=== PATIENT | female | born 1950 | race Asian ===

== ENCOUNTER 2020-05-19 16:03 | Emergency (ER) | payer MEDICARE, MEDICAID ==
[~2020-05-19] VITALS: Ht 149.9 cm; Wt 70.5 kg
[~2020-05-19 16:03] MED LIST: CLON0.3T PO; FERR-72 PO; FURO40TA5 PO; GLIP10TA9 PO; LABE100T5 PO; MINO2.5 PO; PRED1 PO; SLOMG PO; nephrovite PO
[2020-05-19] MEDS ORDERED: ONDANSETRON HCL 4 MG/2 ML VIAL IVP ONE (16:30)
[2020-05-19 16:54] LABS: COVID AG,FIA SOURCE NASOPHARYNGEAL
[2020-05-19] MEDS ORDERED: MECLIZINE HCL 25 MG TABLET PO ONE (17:30)
[2020-05-19 17:44] LABS: BASOPHILS % (AUTO) 0.5 % (0.0-2.0); EOSINOPHILS % (AUTO) 4.9 % (1.0-6.0); HEMATOCRIT 30.1 % (36-46); LYMPHOCYTES # (AUTO) 0.9 K/uL (1.0-4.8); LYMPHOCYTES % (AUTO) 9.5 % (22.0-44.0); MEAN CORPUSCULAR HEMOGLOBIN 31.5 pg (26.0-34.0); MEAN CORPUSCULAR HGB CONC 33.3 G/dL (31.0-37.0); MEAN CORPUSCULAR VOLUME 95 fL (80-100); MONOCYTES # (AUTO) 0.6 K/uL (0.1-1.0); MONOCYTES % (AUTO) 5.9 % (2.0-9.0); NEUTROPHILS # (AUTO) 7.5 K/uL (1.8-7.7); NEUTROPHILS % (AUTO) 79.2 % (40.0-70.0); PLATELET COUNT (AUTO) 156 K/uL (150-450); RED BLOOD CELL COUNT(AUTO) 3.18 MIL/uL (4.00-5.20); RED CELL DISTRIBUTION WIDTH 15.5 % (11.5-14.5)
[2020-05-19 18:01] LABS: CALCIUM, TOTAL 9.4 mg/dL (8.8-10.5); CREATININE 8.07 mg/dL (0.60-1.30); POTASSIUM 4.5 mmol/L (3.5-5.1)
[2020-05-19 18:10] LABS: ALBUMIN 3.6 g/dL (3.4-5.0); BILIRUBIN,TOTAL 0.6 mg/dL (0.1-1.0); TOTAL PROTEIN, SERUM 7.5 g/dL (6.4-8.2)
[2020-05-19 18:30] VITALS: BP 149/74
== END 2020-05-19 20:19 | disposition home or self-care (01) ==
LOC: EMS 16:03
DX: I13.2 Hypertensive heart and chronic kidney disease with heart failure and with stage 5 chronic kidney disease, or end stage renal disease (principal); N18.6 End stage renal disease; Z99.2 Dependence on renal dialysis; Z20.822 Contact with and (suspected) exposure to COVID-19; Z88.8 Allergy status to other drugs, medicaments and biological substances
CPT/HCPCS: 36415; 70450; 71045; 80053; 82962; 83690; 85025; 87426; 93005; 96374; 99285; J2405